=== PATIENT | female | born 1965 | race Caucasian/White ===

== ENCOUNTER 2017-01-05 15:54 | Emergency (ER) | payer OTHER ==
[~2017-01-05] VITALS: Ht 162.6 cm; Wt 74.9 kg
[2017-01-05 16:09] VITALS: BP 141/80; PULSE 73; RESP 18; O2SAT 98
--- NOTE | 2017-01-05 17:06 | DRSVH ---
PROCEDURE: X-RAY CHEST, TWO VIEWS ([id number]) INDICATIONS: chest pain TECHNIQUE: 2 views of the chest were acquired. COMPARISON: [facility], CHEST 2VW, 04/12/2011, 11:01 AM. FINDINGS: Surgical changes and devices: None. Lungs and pleura: No pleural effusions or pneumothorax. Lungs are clear. Mediastinum: Mediastinal contours are normal. Heart size is normal. Bones and chest wall: No suspicious bony abnormalities. Soft tissues appear unremarkable. IMPRESSION: No acute cardiopulmonary disease. Dictated by: Jitendra Espitia M.D. on 01/05/2017 at 17:04 Approved by: Jitendra Espitia M.D. on 01/05/2017 at 17:04
[2017-01-05 17:27] LABS: BASOPHILS % (AUTO) 0.4 % (0-3); EOSINOPHILS % (AUTO) 1.3 % (0-5); MONOCYTES % (AUTO) 8.8 % (4-12); Mean Corpuscular Hemoglobin 31.7 pg (27.0-35.0); Mean Corpuscular Volume 93.6 fL (81-100); NEUTROPHILS % (AUTO) 69.9 % (40-74); Platelet Count 309 bil/L (150-400)
[2017-01-05 18:18] VITALS: BP 137/73; PULSE 67; RESP 14; O2SAT 99
[2017-01-05 18:59] LABS: TROPONIN T < 0.010 ug/L (0.0-0.011)
--- NOTE | 2017-01-05 19:15 | ED.REPORT ---
HPI-Chest Pain 40 and Over Date of Service Jan 05, 2017 ED Provider: Christopher Nails MD A 52 year old female presents to the ED with sudden-onset chest pain that began at 1300 this afternoon. Patient reports a similar episode 3 days ago that resolved without intervention. The severe episode of pain lasted approx. 5 minutes. Associated symptoms include headache, SOB, right arm pain and dizziness. Her symptoms completely resolved after 4 hours. She admits to eating a few hours prior to symptom onset. Patient was sent to the ED from Urgent Care for further evaluation. She denies history of diabetes mellitus, cancer, kidney disease, PE or DVT. Patient has no known cardiac risk factors. Nursing Notes Stated Complaint: CHEST PAIN AND HEADACHE Chief Complaint: Chest Pain Nursing Notes Reviewed: Yes Allergies: Coded Allergies: No Known Allergies (Verified Allergy, Unknown, 02/05/14) General Time Seen by MD: 19:14 Chief Complaint Chest pressure Hx Obtained From: Patient Arrived By: Walk-in Sudden in Onset?: No Onset Occurred: 3 days ago Symptom Duration: Since onset Location: : Chest left: Chest right Quality: Painful Radiation: : Does not radiate Migration/Movement: Reports: None Severity: Current: Moderate Severity: Maximum: Moderate Associated with: Reports: Dizziness, Shortness of Breath Pertinent Negative: Pt denies other symptoms Recent Healthcare: No recent doctor visit, No recent hospitalization Risk Factors )( CAD Risk Stratification Risk factors reviewed )( TAD Risk Stratification Risk factors reviewed )( PE Risk Stratification Risk factors reviewed HEART Score HEART for MACE: Low index of susp (0), Normal ECG (0), Age 45 - 65 (1), No risk factors known (0), < or = to NL troponin (0) HEART for MACE Score: 0-3 (low risk 0.9%-1.7%) Well's Criteria for PE Well's PE Score: 0-2 pts (low risk 3.6%) Well's Criteria for DVT Well's DVT Score: 0 pts (low risk 5%) Past Medical History Past Medical History Migraines Denies: Diabetes mellitus Past Surgical History None reported. Smoking History Never Smoker Social History Other Social History: Good social support, Local resident Ambulatory Status Independent Review of Systems Respiratory: Reports: Shortness of breath Cardiovascular: Reports: Chest pain Musculoskeletal: Reports: Extremity pain (right arm pain ) Neurologic: Reports: Dizziness, Headache Complete sys rev & neg: except as marked. Physical Exam Initial Vital Signs Vital Signs (First) Date Time Temp Pulse Resp B/P Pulse Ox O2 Delivery O2 Flow Rate FiO2 01/05/17 16:09 36.6 73 18 141/80 98 Room Air Initial VS: Reviewed Head / Eyes: Atraumatic, Normocephalic, PERRL Neck: Supple, Non-tender, Full range of motion Extremities: Vascular intact, Neuro intact, No swelling, No tenderness Skin: Warm, Dry, No cyanosis Neurologic: Alert, Oriented, Nonfocal Psychiatric: Mood/affect normal, Behavior normal, Normal thought content General/Constitutional: Awake, Alert, No acute distress, Well appearing, Well developed Respiratory / Chest: Atraumatic, Breath sounds NL, Breath sounds = bilat, No respiratory distress Cardiovascular: Heart rate NL, Regular rhythm, Heart sounds NL, Peripheral circulation NL, Pulses = bilaterally Abdomen: Atraumatic, Soft, Non-tender Interpretation & Diagnostics Lab Results Interpretation Result Diagram: 01/05/17 1515 01/05/17 1515 Test 01/05/17 15:15 01/05/17 19:51 White Blood Count 10.6th/mm3 (3.8-10.1) Red Blood Count 4.39mil/mm3 (3.90-5.20) Hemoglobin 13.9g/dL (12.0-15.6) Hematocrit 41.1% (35.0-46.0) Mean Corpuscular Volume 93.6fL (81-100) Mean Corpuscular Hemoglobin 31.7pg (27.0-35.0) Mean Corpuscular Hemoglobin Concent 33.8% (32.0-37.0) Red Cell Distribution Width 12.3% (12.3-15.4) Platelet Count 309bil/L (150-400) Neutrophils (%) (Auto) 69.9% (40-74) Lymphocytes (%) (Auto) 19.1% (14-46) Monocytes (%) (Auto) 8.8% (4-12) Eosinophils (%) (Auto) 1.3% (0-5) Basophils (%) (Auto) 0.4% (0-3) Sodium Level 138mEq/L (134-144) Potassium Level 3.8mEq/L (3.5-5.2) Chloride Level 100mEq/L (97-108) Carbon Dioxide Level 24mmol/L (18-29) Blood Urea Nitrogen 19mg/dL (6-24) Creatinine 0.75mg/dL (0.57-1.00) Estimat Glomerular Filtration Rate 116mL/min (>59) Glucose Level 81mg/dL (60-99) Calcium Level 9.6mg/dL (8.5-10.1) Total Bilirubin 0.2mg/dL (0.0-1.2) Aspartate Amino Transf (AST/SGOT) 15U/L (0-50) Alanine Aminotransferase (ALT/SGPT) 10U/L (0-32) Alkaline Phosphatase 64U/L (25-150) Troponin T < 0.010ug/L (0.0-0.011) Total Protein 7.6g/dL (6.4-8.4) Albumin 4.6g/dL (3.4-5.0) Hold Gomez Top Tube Received (Received) D-Dimer 0.80mg/L FEU (<0.50) ECG Interpretation ECG Interpretation: Sinus Rhythm Rate 69 Time: 17:05 Interpreted by: ED physician X-Ray Chest Interpretation Chest Xray Interpretation: IMPRESSION: No acute cardiopulmonary disease. Dictated by: Jitendra Espitia M.D. on 01/05/2017 at 17:04 Interpretation / Wet Read by: Interpret - Radiologist CT Chest Interpretation IMPRESSION: 1. No evidence of pulmonary embolism. Dictated by: Prince Hyde M.D. on 01/05/2017 at 20:51 Study type: CT pulm angiogram Interpretation / Wet Read by: Interpret - Radiologist Re-Eval/Medical Decision Time of Eval: 19:23 Patient Status: Condition improved Re-Evaluation/Progress Note: Patient is rechecked. She is informed of her reassuring results and diagnosis. All questions are addressed at this time. She understand and agree with the intended treatment plan. Counseled Regarding: Diagnosis, Lab results, Need for follow-up, When/why to return to ED Discharge & Departure Primary Impression: Chest pain Chest pain type: unspecified Qualified Code: R07.9 - Chest pain, unspecified Disposition: Home Discharge Condition All VS Reviewed: Yes Condition: Improved Patient Instructions: Chest Pain (ED) Additional Instructions: Thank you for trusting us with you care this evening. Your emergency department evaluation today including lab work, EKG and chest X- ray and CT scan are reassuring that there is no emergent cause for concern at this time and I do not believe that your symptoms are due to heart attack or pulmonary embolism. A clear cause of your symptoms was not identified and I recommend that you follow up with your primary care physician in the next week for a recheck. You may want to consider a stress test in the next few weeks. Please return to the emergency department for any new or worsening symptoms including fever, chills, nausea, vomiting, worsening pain, lightheadedness, weakness, or any numbness/tingling. Referrals: Parviz Rodney MD (PCP) Scribe Attestation Portions of this note were transcribed by Chato Crawford. I, Dr. Nails personally performed the history, physical exam and medical decision-making; I reviewed and confirmed the accuracy of the information in the transcribed note. copies to: Parviz Rodney MD, Kirk H MD Jan 05, 2017 19:15 CHATO CRAWFORD Jan 05, 2017 19:22
[2017-01-05 20:17] VITALS: PULSE 101; RESP 24; O2SAT 98
[2017-01-05 20:54] VITALS: BP 135/73; PULSE 70; RESP 17; O2SAT 100
--- NOTE | 2017-01-05 20:54 | DRSVH ---
PROCEDURE: CT ANGIO CHEST PULMONARY EMBOLISM ([id number]) INDICATIONS: chest pain, elevated DDimer TECHNIQUE: After the administration of intravenous contrast, 2 mm thick sections acquired from the pulmonary api maisha to the posterior costophrenic angles. 3-dimensional maximum intensity projection (MIP) coronal a nd sagittal reformats were then acquired through the thorax. For radiation dose reduction, the follo wing was used: automated exposure control, adjustment of mA and/or kV according to patient size. COMPARISON: [facility], CR, XR CHEST 2VW, 01/05/2017, 16:55. FINDINGS: Image quality: Excellent. Pulmonary arteries: Pulmonary arteries are normal in size, and demonstrate no intraluminal filling d efects to suggest central pulmonary embolism. Lungs and pleura: There is mild dependent atelectasis bilaterally. No acute consolidation. No pleur al effusions or pneumothorax. Central and peripheral airways are patent. Mediastinum: Heart size is normal, without pericardial effusion. No mediastinal or hilar adenopathy . Thoracic aorta is normal in caliber and enhancement. Esophagus is normal in caliber, without hiat al hernia. Bones and chest wall: No suspicious bony lesions. Ribs and thoracic spine appear intact throughout. Thyroid gland demonstrates no discrete nodules. No axillary or supraclavicular adenopathy. Abdomen: Visualized upper abdomen demonstrates a small hypodensity in the left hepatic lobe measurin g 8 mm which is too small to characterize but likely represents a cyst. IMPRESSION: 1. No evidence of pulmonary embolism. Dictated by: Prince Hyde M.D. on 01/05/2017 at 20:51 Approved by: Prince Hyde M.D. on 01/05/2017 at 20:53
== END 2017-01-05 21:23 | disposition home or self-care (01) ==
LOC: SED 15:54
DX: R07.9 Chest pain, unspecified (principal)
CPT/HCPCS: 36415; 71020; 71275; 80053; 84484; 85025; 85378; 93005; 99285; Q9967